=== PATIENT | male | born 1965 | race Hispanic/Latino ===

== ENCOUNTER 2018-12-31 19:24 | Emergency (ER) | payer OTHER ==
--- NOTE | 2018-12-31 21:06 | ULT ---
EXAM: Left lower extremity venous duplex ultrasound with color and spectral Doppler imaging: HISTORY: Left leg pain and swelling and edema COMPARISON: None FINDINGS: There is evidence for intraluminal thrombus within the mid greater saphenous vein at the level of the mid thigh down to the level of the medial calf. Exam performed from the groin to the ankle including the visualized greater saphenous, common femoral , superficial femoral, profunda femoral, popliteal, trifurcation, and posterior tibial veins. There is phasic flow with normal compressibility and normal augmentation at all examined levels. No evidence for intraluminal thrombus. IMPRESSION:: No evidence for deep venous thrombosis. Intraluminal thrombus within the mid greater saphenous vein at the level of the mid thigh down to the level of the midcalf, associated with an area of redness.
== END 2018-12-31 21:11 ==
LOC: ERS 19:24 → EEVIPCON 19:24 → ERS 21:11
DX: I80.01 Phlebitis and thrombophlebitis of superficial vessels of right lower extremity (principal); I10 Essential (primary) hypertension; E03.9 Hypothyroidism, unspecified; Z79.82 Long term (current) use of aspirin; Z79.899 Other long term (current) drug therapy